=== PATIENT | female | born 1970 | race Caucasian/White ===

== ENCOUNTER → 2017-06-20 | Outpatient (CLI) | payer MEDICARE ==
[~2017-06-20] MED LIST: ASMANEX TW0.22 MG/A1 IH; FELDENE20 MG PO; LEVOTHYROXIN0.125 MG PO; METHOTREXATE2.5 M1 PO; PROAIR HFA0.09 MG/AC IH; PROPYLTHIOURACI50 MG PO; TRAMADOL HCL50 MG PO; VICODIN 5-3001 EACH PO
== END | disposition home or self-care (01) ==
LOC: MAMMO 17:31
DX: Z12.31 Encounter for screening mammogram for malignant neoplasm of breast (principal)

== ENCOUNTER 2017-09-14 14:28 | Emergency (ER) | payer MEDICARE ==
[~2017-09-14] VITALS: Ht 154.9 cm; Wt 74.8 kg
[2017-09-14 14:32] VITALS: BP 138/82
[2017-09-14] MEDS ORDERED: DELTASONE20 M1 PO (16:43)
[2017-09-14] MEDS ORDERED: VIBRAMYCIN100 MG PO (16:43)
== END 2017-09-14 16:49 | disposition home or self-care (01) ==
LOC: ED 14:28
DX: J44.1 Chronic obstructive pulmonary disease with (acute) exacerbation (principal); Z88.5 Allergy status to narcotic agent; Z88.8 Allergy status to other drugs, medicaments and biological substances; Z90.710 Acquired absence of both cervix and uterus

== ENCOUNTER 2017-10-06 04:17 | Emergency (ER) | payer MEDICARE ==
[~2017-10-06] VITALS: Ht 152.4 cm; Wt 74.8 kg
[~2017-10-06 04:17] MED LIST changes: +DELTASONE20 M1 PO; +VIBRAMYCIN100 MG PO
[2017-10-06 05:48] VITALS: BP 129/63
[2017-10-06] MEDS ORDERED: LEVOFLOXACIN500 MG PO (06:04)
[2017-10-06] MEDS ORDERED: DUONEB 3 MG/3 ML3 M1 INH ×2 (06:04→09:19)
[2017-10-06] MEDS ORDERED: PREDNISONE20 M1 PO (06:04)
== END 2017-10-06 06:29 | disposition home or self-care (01) ==
LOC: ED 04:17
DX: J18.9 Pneumonia, unspecified organism (principal); J44.1 Chronic obstructive pulmonary disease with (acute) exacerbation

== ENCOUNTER → 2017-10-18 | Outpatient (CLI) | payer MEDICARE ==
[~2017-10-18] MED LIST changes: +DUONEB 3 MG/3 ML3 M1 INH; +LEVOFLOXACIN500 MG PO; +PREDNISONE20 M1 PO
== END | disposition home or self-care (01) ==
LOC: CT 08:52
DX: R06.02 Shortness of breath (principal)

== ENCOUNTER → 2018-02-15 | Outpatient (CLI) | payer MEDICARE | END | disposition home or self-care (01) | LOC: CT 12:47 | DX: J18.9 Pneumonia, unspecified organism (principal); J44.9 Chronic obstructive pulmonary disease, unspecified; J98.11 Atelectasis; J98.4 Other disorders of lung ==

== ENCOUNTER → 2018-09-13 | Outpatient (CLI) | payer MEDICARE ==
[~2018-09-13] MED LIST changes: +AUGMENTIN 500500 M1 PO; +ZOFRAN4 MG PO
== END | disposition home or self-care (01) ==
LOC: MAMMO 09:50
DX: Z12.31 Encounter for screening mammogram for malignant neoplasm of breast (principal); Z13.820 Encounter for screening for osteoporosis; R92.8 Other abnormal and inconclusive findings on diagnostic imaging of breast; E89.0 Postprocedural hypothyroidism; Z78.0 Asymptomatic menopausal state

== ENCOUNTER → 2019-04-02 | Outpatient (CLI) | payer MEDICARE | END | disposition home or self-care (01) | LOC: US 13:09 | DX: I73.9 Peripheral vascular disease, unspecified (principal); Z87.891 Personal history of nicotine dependence ==

== ENCOUNTER → 2020-01-20 | Outpatient (CLI) | payer MEDICARE, OTHER ==
[2020-01-20 11:11] LABS: FREE T4 1.31 ng/dl (0.76-1.46)
[2020-01-20 11:17] LABS: THYROID STIM HORMONE (HS) 6.5 uIU/ml (0.358-4.75)
== END | disposition home or self-care (01) ==
LOC: LAB 08:27 → MAMMO 09:00
PROVIDERS: Internal Medicine
DX: Z12.31 Encounter for screening mammogram for malignant neoplasm of breast (principal); J44.9 Chronic obstructive pulmonary disease, unspecified; J98.11 Atelectasis; M06.9 Rheumatoid arthritis, unspecified; I10 Essential (primary) hypertension; E03.9 Hypothyroidism, unspecified; E55.9 Vitamin D deficiency, unspecified; E78.2 Mixed hyperlipidemia

== ENCOUNTER → 2022-03-14 | Outpatient (CLI) | payer MEDICARE, OTHER | END | disposition home or self-care (01) | LOC: MAMMO 14:00 | PROVIDERS: ATTEND Internal Medicine | DX: Z12.31 Encounter for screening mammogram for malignant neoplasm of breast (principal); N64.89 Other specified disorders of breast ==

== ENCOUNTER → 2022-05-13 | Outpatient (CLI) | payer MEDICARE, OTHER ==
[2022-05-13 09:24] LABS: CREATININE 0.69 mg/dL (0.55-1.02)
== END | disposition home or self-care (01) ==
LOC: LAB 08:51 → CT 09:00
PROVIDERS: ATTEND Internal Medicine
DX: J43.8 Other emphysema (principal); E27.9 Disorder of adrenal gland, unspecified; J98.11 Atelectasis

== ENCOUNTER → 2022-09-05 | Day surgery (SDC) | payer MEDICARE, OTHER ==
[~2022-09-05] VITALS: Ht 154.9 cm; Wt 70.3 kg
[~2022-09-05] MED LIST changes: +CARVEDILOL3.125 MG PO; +LEFLUNOMIDE20 M1 PO; +LISINOPRIL2.5 MG PO; +MELOXICAM15 MG PO
[2022-09-05 06:30] VITALS: BP 125/76
[2022-09-05 07:48] VITALS: BP 112/62
[2022-09-05 08:03] VITALS: BP 114/69
[2022-09-05 08:16] VITALS: BP 123/70
== END | disposition home or self-care (01) ==
LOC: SDC 09-01 09:30
PROVIDERS: ATTEND Surgery
DX: R19.5 Other fecal abnormalities (principal); K57.30 Diverticulosis of large intestine without perforation or abscess without bleeding; J44.9 Chronic obstructive pulmonary disease, unspecified; E05.90 Thyrotoxicosis, unspecified without thyrotoxic crisis or storm; F17.210 Nicotine dependence, cigarettes, uncomplicated; M06.9 Rheumatoid arthritis, unspecified; Z98.890 Other specified postprocedural states

== ENCOUNTER 2023-02-21 18:57 | Emergency (ER) | payer OTHER | END 2023-02-21 21:41 | disposition left against medical advice (07) | LOC: ED 18:57 | DX: S00.86XA Insect bite (nonvenomous) of other part of head, initial encounter (principal); Z53.21 Procedure and treatment not carried out due to patient leaving prior to being seen by health care provider; W57.XXXA Bitten or stung by nonvenomous insect and other nonvenomous arthropods, initial encounter; Y93.89 Activity, other specified; Y92.89 Other specified places as the place of occurrence of the external cause; Y99.8 Other external cause status ==

== ENCOUNTER → 2023-03-18 | Outpatient (CLI) | payer OTHER ==
[2023-03-18 09:48] LABS: BASO % 0.7 % (0.0-1.0); EOS # 0.2 10*3/uL (0.0-0.4); EOS % 5.3 % (1.0-4.0); LYMPH # 1.3 10*3/uL (1.3-4.4); LYMPH % 31.8 % (27.0-41.0); MEAN CELL VOLUME 92.4 fl (81.0-99.0); MEAN CORPUSCULAR HGB 30.5 pg (27.0-31.0); MEAN PLATELET VOLUME 10.3 fl (9.6-12.3); MONO # 0.3 10*3/uL (0.1-1.0); MONO % 6.8 % (3.0-9.0); NEUT # 2.3 10*3/uL (2.3-7.9); NEUT % 55.2 % (47.0-73.0); PLATELET COUNT AUTOMATED 133 10*3/uL (130-400); RED BLOOD COUNT 4.76 10*6/uL (4.10-5.10); RED CELL DISTRI WIDTH 13.6 % (0-14.5); WHITE BLOOD COUNT 4.1 10*3/uL (4.8-10.8)
[2023-03-18 10:20] LABS: ALKALINE PHOSPHATASE 47 U/L (46-116); BUN 15 mg/dl (9-23); CHLORIDE 108 mmol/L (98-107); POTASSIUM 3.6 mmol/L (3.4-5.1); SGPT/ALT 36 U/L (10-49)
== END | disposition home or self-care (01) ==
LOC: LAB 09:30
PROVIDERS: ATTEND Nurse Practitioner Adult Health
DX: M05.79 Rheumatoid arthritis with rheumatoid factor of multiple sites without organ or systems involvement (principal); Z79.1 Long term (current) use of non-steroidal anti-inflammatories (NSAID); Z79.899 Other long term (current) drug therapy

== ENCOUNTER → 2023-09-30 | Outpatient (CLI) | payer OTHER ==
[2023-09-30 07:52] LABS: BASO # 0.1 10*3/uL (0.0-0.1); BASO % 0.9 % (0.0-1.0); EOS # 0.3 10*3/uL (0.0-0.4); EOS % 4.5 % (1.0-4.0); LYMPH # 1.6 10*3/uL (1.3-4.4); LYMPH % 28.6 % (27.0-41.0); MEAN CELL VOLUME 95.4 fl (81.0-99.0); MEAN CORPUSCULAR HGB 30.1 pg (27.0-31.0); MEAN CORPUSCULAR HGB CONC 31.5 g/dl (33.0-37.0); MEAN PLATELET VOLUME 10.4 fl (9.6-12.3); MONO # 0.4 10*3/uL (0.1-1.0); MONO % 6.8 % (3.0-9.0); NEUT # 3.3 10*3/uL (2.3-7.9); NEUT % 59.2 % (47.0-73.0); PLATELET COUNT AUTOMATED 153 10*3/uL (130-400); RED BLOOD COUNT 4.82 10*6/uL (4.10-5.10); RED CELL DISTRI WIDTH 13.6 % (0-14.5); WHITE BLOOD COUNT 5.6 10*3/uL (4.8-10.8)
[2023-09-30 08:30] LABS: ALKALINE PHOSPHATASE 52 U/L (46-116); BUN 14 mg/dl (9-23); CHLORIDE 107 mmol/L (98-107); POTASSIUM 4.1 mmol/L (3.4-5.1); SGPT/ALT 35 U/L (5-49); TOTAL PROTEIN 7.1 gm/dL (6.0-8.0)
== END | disposition home or self-care (01) ==
LOC: LAB 07:39
PROVIDERS: ATTEND Nurse Practitioner Adult Health
DX: M05.79 Rheumatoid arthritis with rheumatoid factor of multiple sites without organ or systems involvement (principal); Z79.1 Long term (current) use of non-steroidal anti-inflammatories (NSAID); Z79.899 Other long term (current) drug therapy

== ENCOUNTER → 2023-11-21 | Outpatient (CLI) | payer OTHER ==
[2023-11-21 12:21] LABS: BASO % 0.7 % (0.0-1.0); EOS # 0.2 10*3/uL (0.0-0.4); EOS % 4.8 % (1.0-4.0); HEMATOCRIT 43.4 % (37.0-47.0); LYMPH # 1.4 10*3/uL (1.3-4.4); MEAN CELL VOLUME 94.6 fl (81.0-99.0); MEAN CORPUSCULAR HGB 30.3 pg (27.0-31.0); MEAN PLATELET VOLUME 10.8 fl (9.6-12.3); MONO # 0.3 10*3/uL (0.1-1.0); MONO % 5.9 % (3.0-9.0); NEUT # 2.5 10*3/uL (2.3-7.9); NEUT % 57.6 % (47.0-73.0); PLATELET COUNT AUTOMATED 145 10*3/uL (130-400); RED BLOOD COUNT 4.59 10*6/uL (4.10-5.10); RED CELL DISTRI WIDTH 13.8 % (0-14.5); WHITE BLOOD COUNT 4.4 10*3/uL (4.8-10.8)
[2023-11-21 12:47] LABS: VITAMIN D, 25-HYDROXY 40.4 ng/mL (30-100)
[2023-11-21 12:49] LABS: ALKALINE PHOSPHATASE 52 U/L (46-116); BUN 9 mg/dl (9-23); CHLORIDE 105 mmol/L (98-107); CHOLESTEROL 191 mg/dL (<200); FREE T4 1.33 ng/dl (0.89-1.76); LDL CHOLESTEROL 118 mg/dL (9-159); POTASSIUM 3.7 mmol/L (3.4-5.1); SGPT/ALT 28 U/L (5-49); TOTAL PROTEIN 7.1 gm/dL (6.0-8.0); TRIGLYCERIDES 122 mg/dl (<150)
== END | disposition home or self-care (01) ==
LOC: LAB 01:14 → CARD 01:14
PROVIDERS: ATTEND Internal Medicine
DX: Z13.0 Encounter for screening for diseases of the blood and blood-forming organs and certain disorders involving the immune mechanism (principal); I65.23 Occlusion and stenosis of bilateral carotid arteries; I10 Essential (primary) hypertension; E55.9 Vitamin D deficiency, unspecified; J44.1 Chronic obstructive pulmonary disease with (acute) exacerbation; E03.9 Hypothyroidism, unspecified; R06.02 Shortness of breath; E78.2 Mixed hyperlipidemia; Z13.1 Encounter for screening for diabetes mellitus; Z13.220 Encounter for screening for lipoid disorders; Z13.228 Encounter for screening for other metabolic disorders; Z13.29 Encounter for screening for other suspected endocrine disorder; Z13.9 Encounter for screening, unspecified

== ENCOUNTER → 2024-03-30 | Outpatient (CLI) | payer OTHER ==
[2024-03-30 07:25] LABS: BASO # 0.1 10*3/uL (0.0-0.1); BASO % 1.2 % (0.0-1.0); EOS # 0.2 10*3/uL (0.0-0.4); EOS % 3.2 % (1.0-4.0); HEMATOCRIT 43.1 % (37.0-47.0); LYMPH # 1.5 10*3/uL (1.3-4.4); LYMPH % 31.2 % (27.0-41.0); MEAN CELL VOLUME 95.1 fl (81.0-99.0); MEAN CORPUSCULAR HGB 30.2 pg (27.0-31.0); MEAN CORPUSCULAR HGB CONC 31.8 g/dl (33.0-37.0); MONO # 0.3 10*3/uL (0.1-1.0); MONO % 5.3 % (3.0-9.0); NEUT # 2.9 10*3/uL (2.3-7.9); NEUT % 58.9 % (47.0-73.0); PLATELET COUNT AUTOMATED 160 10*3/uL (130-400); RED BLOOD COUNT 4.53 10*6/uL (4.10-5.10); RED CELL DISTRI WIDTH 14.1 % (0-14.5); WHITE BLOOD COUNT 4.9 10*3/uL (4.8-10.8)
[2024-03-30 07:50] LABS: ALKALINE PHOSPHATASE 51 U/L (46-116); BUN 17 mg/dl (9-23); CHLORIDE 107 mmol/L (98-107); POTASSIUM 3.7 mmol/L (3.4-5.1); SGPT/ALT 33 U/L (5-49)
== END | disposition home or self-care (01) ==
LOC: LAB 07:12
PROVIDERS: ATTEND Nurse Practitioner Adult Health
DX: M05.79 Rheumatoid arthritis with rheumatoid factor of multiple sites without organ or systems involvement (principal); Z79.1 Long term (current) use of non-steroidal anti-inflammatories (NSAID); Z79.899 Other long term (current) drug therapy

== ENCOUNTER → 2024-09-21 | Outpatient (CLI) | payer OTHER ==
[2024-09-21 09:21] LABS: URIC ACID 4.2 mg/dL (3.1-7.8)
[2024-09-21 09:38] LABS: VITAMIN D, 25-HYDROXY 32.3 ng/mL (30-100)
[2024-09-21 09:51] LABS: ALKALINE PHOSPHATASE 58 U/L (46-116); BUN 16 mg/dl (9-23); CHLORIDE 104 mmol/L (98-107); CHOLESTEROL 273 mg/dL (<200); LDL CHOLESTEROL 189 mg/dL (9-159); POTASSIUM 3.9 mmol/L (3.4-5.1); SGPT/ALT 54 U/L (5-49); TOTAL PROTEIN 7.4 gm/dL (6.0-8.0); TRIGLYCERIDES 173 mg/dl (<150)
[2024-09-21 10:23] LABS: BASO # 0.1 10*3/uL (0.0-0.1); BASO % 0.8 % (0.0-1.0); EOS # 0.3 10*3/uL (0.0-0.4); EOS % 4.9 % (1.0-4.0); HEMATOCRIT 45.5 % (37.0-47.0); MEAN CELL VOLUME 93.4 fl (81.0-99.0); MEAN CORPUSCULAR HGB 30.4 pg (27.0-31.0); MEAN CORPUSCULAR HGB CONC 32.5 g/dl (33.0-37.0); MEAN PLATELET VOLUME 10.6 fl (9.6-12.3); MONO # 0.3 10*3/uL (0.1-1.0); MONO % 5.3 % (3.0-9.0); NEUT # 4.1 10*3/uL (2.3-7.9); NEUT % 67.3 % (47.0-73.0); PLATELET COUNT AUTOMATED 147 10*3/uL (130-400); RED BLOOD COUNT 4.87 10*6/uL (4.10-5.10); RED CELL DISTRI WIDTH 13.7 % (0-14.5); WHITE BLOOD COUNT 6.1 10*3/uL (4.8-10.8)
== END | disposition home or self-care (01) ==
LOC: LAB 07:54
PROVIDERS: Nurse Practitioner Adult Health; ATTEND Internal Medicine
DX: I10 Essential (primary) hypertension (principal); E78.2 Mixed hyperlipidemia; E03.9 Hypothyroidism, unspecified; R53.83 Other fatigue; E53.9 Vitamin B deficiency, unspecified; E55.9 Vitamin D deficiency, unspecified; F17.210 Nicotine dependence, cigarettes, uncomplicated

== ENCOUNTER → 2024-12-13 | Outpatient (CLI) | payer OTHER | END | disposition home or self-care (01) | LOC: RAD 10:21 | PROVIDERS: ATTEND Internal Medicine | DX: M81.0 Age-related osteoporosis without current pathological fracture (principal); Z78.0 Asymptomatic menopausal state ==

== ENCOUNTER → 2025-05-24 | Outpatient (CLI) | payer OTHER ==
[2025-05-24 08:59] LABS: BASO # 0.1 10*3/uL (0.0-0.1); BASO % 1.1 % (0.0-1.0); EOS # 0.3 10*3/uL (0.0-0.4); EOS % 4.4 % (1.0-4.0); MEAN CELL VOLUME 93.6 fl (81.0-99.0); MEAN CORPUSCULAR HGB 30.8 pg (27.0-31.0); MEAN PLATELET VOLUME 11.6 fl (9.6-12.3); MONO # 0.3 10*3/uL (0.1-1.0); MONO % 5.5 % (3.0-9.0); NEUT # 3.7 10*3/uL (2.3-7.9); NEUT % 65.7 % (47.0-73.0); NUCLEATED RED BLOOD CELL 0.0 % (0.0-0.0); NUCLEATED RED BLOOD CELL 0.0 10*3/uL (0.0-0.0); PLATELET COUNT AUTOMATED 131 10*3/uL (130-400); RED CELL DISTRI WIDTH 13.8 % (0-14.5)
[2025-05-24 09:06] LABS: BUN 14 mg/dl (9-23); SGPT/ALT 50 U/L (5-49)
[2025-05-24 09:57] LABS: BASOPHILS 1 % (0-1)
[2025-05-24 09:58] LABS: PLATELET SUFFICIENCY NORMAL (NORMAL)
== END | disposition home or self-care (01) ==
LOC: LAB 08:02
PROVIDERS: ATTEND Nurse Practitioner Adult Health
DX: M25.50 Pain in unspecified joint (principal); M05.79 Rheumatoid arthritis with rheumatoid factor of multiple sites without organ or systems involvement; Z79.1 Long term (current) use of non-steroidal anti-inflammatories (NSAID); Z79.620 Long term (current) use of immunosuppressive biologic